=== PATIENT | male | born 1940 | race Caucasian/White ===

== ENCOUNTER 2020-11-23 04:31 | Emergency (ER) | payer MEDICARE, OTHER ==
[~2020-11-23] VITALS: Ht 170.2 cm; Wt 84.0 kg
[2020-11-23] MEDS ORDERED: BUSP5TAB2 PO (04:57)
[2020-11-23] MEDS ORDERED: TAMS-11 PO (04:57)
[2020-11-23] MEDS ORDERED: PROP20TA PO (04:57)
[2020-11-23] MEDS ORDERED: PRAV20TA2 PO (04:57)
[2020-11-23] MEDS ORDERED: BUDE10.2 INH (04:57)
[2020-11-23] MEDS ORDERED: SUMA100T4 PO (05:04)
[2020-11-23] MEDS ORDERED: ONDA4TAB7 PO (05:04)
[2020-11-23] MEDS ORDERED: ALPR0.5T93 PO (05:04)
[2020-11-23] MEDS ORDERED: DIPH25CA61 PO (05:04)
[2020-11-23] MEDS ORDERED: ALBU8.5H8 INH (05:04)
[2020-11-23 05:13] LABS: MICROSCOPIC NOT IND
[2020-11-23 05:19] LABS: BASOPHILS % (AUTO) 1 % (0-1); EOSINOPHILS % (AUTO) 4 % (1-7); LYMPHOCYTES % (AUTO) 17 % (22-44); MEAN CORPUSCULAR HEMOGLOBIN 31.5 pg (27.5-34.5); MEAN CORPUSCULAR HGB CONC 34.1 g/dL (33.2-36.2); MEAN PLATELET VOLUME 7.8 fL (7.4-10.4); MONOCYTES % (AUTO) 7 % (2-9); NEUTROPHILS % (AUTO) 72 % (42-75); PLATELET COUNT 230 x10^3/uL (130-400); RED BLOOD COUNT 5.51 x10^6/uL (4.38-5.82); RED CELL DISTRIBUTION WIDTH 13.9 % (9.4-14.8)
--- NOTE | 2020-11-23 05:21 | NUR ---
patient ambulated up to bathroom. steady gait. call de guzman in reach safety maintained. remains at bedside. denies pain at this time. patient states he had a colonoscopy 1 month ago and had a polyp removed. has history of stomach ulcers and GI bleeds. has been having black tarry loose stools for a few days. also reports having LUQ intermittent pain characterized as "a dull ache" for 7-8 months. has been seen by other providers for this chronic pain
[2020-11-23 05:26] LABS: MD NO
[2020-11-23 05:28] LABS: ALANINE AMINOTRANSFERASE 31 U/L (12-78); ALBUMIN 3.3 g/dL (3.4-5.0); ANION GAP 6 mmol/L (5-15); CALCIUM 8.5 mg/dL (8.5-10.1); CHLORIDE 109 mmol/L (98-107); CREATININE 0.97 mg/dL (0.7-1.3)
[2020-11-23 05:39] LABS: ALKALINE PHOSPHATASE 72 U/L (45-117); BILIRUBIN,TOTAL 1.1 mg/dL (0.2-1.0); TOTAL PROTEIN 6.6 g/dL (6.4-8.2)
--- NOTE | 2020-11-23 05:58 | NUR ---
discharge instructions reviewed with patient and at bedside. all questions answered to patient and patient's 's satisfaction. prescription handed directly to patient. no IV placed during ER visit. steady gait to lobby. all personal belongings with patient on departure. BRAT diet written on discharge instructions and to not take additional antacids with new prescriptions
[2020-11-23 05:59] VITALS: BP 130/70
== END 2020-11-23 06:02 | disposition home or self-care (01) ==
LOC: ED 05:27
DX: K92.2 Gastrointestinal hemorrhage, unspecified (principal); I10 Essential (primary) hypertension; R19.7 Diarrhea, unspecified; R10.9 Unspecified abdominal pain
CPT/HCPCS: 36415; 80053; 81003; 83690; 85025; 99283